=== PATIENT | male | born 1955 | race Caucasian/White ===

== ENCOUNTER 2017-09-15 20:03 | Inpatient (IN) | payer MEDICARE ==
[2017-09-15] MEDS ORDERED: Ondansetron ODT 4 MG TAB PO PRN (22:34)
[2017-09-16] MEDS: Acetaminophen 325 MG TAB PO PRN ×3 (00:32→20:52)
[2017-09-16] MEDS: Famotidine 20 MG TAB PO SCH ×2 (09:00→20:40)
[2017-09-16] MEDS: Gabapentin 100 MG CAP PO SCH ×3 (09:00→20:41)
[2017-09-16] MEDS ORDERED: VITAMIN B COMPLEX PO SCH (09:00)
[2017-09-16] MEDS: Aspirin 81 mg Enteric Coated Tablet PO SCH (09:00)
[2017-09-16] MEDS ORDERED: FOLIC ACID PO SCH (09:00)
[2017-09-16] MEDS: Cyanocobalamin (Vitamin B-12) 1,000 MCG TAB PO SCH (09:00)
[2017-09-16] MEDS ORDERED: ASCORBIC ACID PO SCH (09:00)
[2017-09-16] MEDS ORDERED: Milk Of Magnesia 30 ML UDCUP PO PRN (16:52)
[2017-09-16] MEDS: diphenhydrAMINE 25 MG CAP PO PRN (20:40)
--- NOTE | 2017-09-17 00:08 | HP ---
DATE OF ADMISSION: 09/15/2017 ADMITTING PHYSICIAN: Selam Mims M.D. PRIMARY CARE PHYSICIAN: No provider. REASON FOR ADMISSION: For Skilled Rehabilitation at [facility] for physical deconditioning secondary to vitamin B12 deficiency, rececurrent falls and alcohol dependence. HISTORY OF PRESENT ILLNESS: Mr. Llamas is a 62-year-old male with no significant past medical history who has not seen a physician in multiple years. The patient presented to the emergency room due to recurrent falls for the past 8 months, which has become progressively more severe. He recently fell on the day of admission and was unable to walk or get up for help. He eventually called one of his friends and he was brought to the emergency room. The patient was admitted to [facility] in [place] from 09/13/2017 to 09/15/2017. He was initially thought to have a transient ischemic attack versus cerebrovascular accident in the hospital. He underwent multiple evaluations. CT scan of the brain was negative. Echocardiogram was normal. CT angiogram of the head and neck were negative and multiple x-rays showed no acute fractures. It was decided that all of his symptoms were attributed to polyneuropathy likely secondary to his chronically significant alcohol use. The patient states he drinks about 12 beers a day and is not planning to quit. He also notes that he does smoke marijuana on a daily basis. He has multiple bruises with different healing stages. The patient in the hospital was supplemented with vitamin B12, thiamine, and folic acid. He was also started on gabapentin for his polyneuropathy. He expressed no interest in cessation of alcohol or marijuana use. His electrolytes were corrected during the hospital admission and patient was subsequently transferred to us in [facility] for physical therapy and assistance with his wound care. The patient does have multiple abrasions and wounds and scrapes all over his body, more significant on his extremities. He does have a draining wound to his left elbow, which is a mild stage II ulcer due to the drainage. The patient upon evaluation today, he complains of loose tooth with no pain, he says almost every food he eats gets stuck in the teeth and he wants to see a dentist since he is in the hospital. The patient states he is not willing to quit drinking, but he is okay with having his beers with meals in the hospital. He denies any chest pain, seizures, shakes, tremors, shortness of breath, palpitations, dizziness. He complains of gait instability. He states he has been having regular bowel movement. He denies any fever. He denies any hallucinations, delusions or confusion. PAST MEDICAL HISTORY: No medical history other than alcohol dependence and recurrent fall. PAST SURGICAL HISTORY: The patient notes he has had multiple surgeries to his knees, right shoulder and the left shoulder. FAMILY HISTORY: Nonapplicable. ALLERGIES: SULFA. MEDICATIONS: Vitamin B12 of 1000 mcg daily, Pepcid 20 mg p.o. daily, thiamine 1000 daily, gabapentin 100 t.i.d., Tylenol 650 q.6 hours p.r.n., aspirin 81 mg daily, MVI 1 tab p.o. daily. SOCIAL HISTORY: The patient chews tobacco. He states he drinks about 12 beers daily. He uses marijuana mostly daily, lives by himself in his home. REVIEW OF SYSTEMS: General: The patient denies any fever or chills. Complains of weakness. The patient denies any nausea, vomiting. HEENT: No visual changes, hearing loss. No dysphagia. Although complains of loose tooth. Chest: No chest pain, shortness of breath, palpitations or dizziness. Abdomen: Denies abdominal pain, constipation, or nausea. Genitourinary: Denies dysuria or hematuria. Skin: Multiple abrasions and bruising all over skin, especially extremities. Musculoskeletal: Complains of soreness, complains of gait instability. Neurologic: Denies memory loss, hallucinations , or delusions. PHYSICAL EXAMINATION: VITAL SIGNS: Temperature 97.3, pulse 75, respirations 16, O2 sat 99% on room air, blood pressure 121/71. GENERAL APPEARANCE: Alert, awake, oriented x3. Healthy appearing male, pleasant, sitting in a chair, no apparent distress. HEENT: Normocephalic, atraumatic. PERRL. Nonicteric sclerae. Oral mucous membranes are moist. Poor dentition. NECK: Supple, no JVD. CHEST: Clear to auscultation bilaterally. CARDIAC: S1, S2, no murmurs, rubs or gallops. No JVD, no carotid bruit. ABDOMEN: Positive bowel sounds, soft, nontender, and nondistended. EXTREMITIES: No focal deficits other than generalized weakness to the upper and lower extremities. SKIN: Multiple abrasions scattered all over the upper and lower extremities. His right elbow with a stage II ulcer, abrasions to his thorax also. PSYCH: Normal mood and affect. ASSESSMENT: 1. Physical deconditioning. 2. Alcohol dependence. 3. Vitamin B12 deficiency. 4. Polyneuropathy. 5. History of multiple falls. 6. Marijuana abuse. 7. Loose tooth/poor dentition. PLAN: The patient is being admitted to [facility] swing bed for rehabilitation and gait strengthening and wound care. We will consult physical therapy for strengthening in order to gain modified independence with his gait and occupational therapy to help with activities of daily living prior to returning to his home. We will change wound dressings daily. We will resume medications started in the hospital. We will supplement his diet with some Ensure Enlive. We will monitor blood pressure closely. We will give him beer with his meal 3 times a day. We will place patient on p.r.n. stool softener. We will monitor for any hemodynamic instability. We will place the patient on G.I prophylaxis and lovenox for deep venous thrombosis prophylaxis. Extended length of stay 2-3 weeks. DISPOSITION: Home. CODE STATUS: FULL CODE. MTDD
[2017-09-17] MEDS: Acetaminophen 325 MG TAB PO PRN ×2 (02:30→13:34)
[2017-09-17] MEDS: Gabapentin 100 MG CAP PO SCH ×4 (09:00→21:22)
[2017-09-17] MEDS: Famotidine 20 MG TAB PO SCH ×2 (09:00→21:22)
[2017-09-17] MEDS: Aspirin 81 mg Enteric Coated Tablet PO SCH ×2 (09:00→13:34)
[2017-09-17] MEDS: Enoxaparin Sodium 40 MG/0.4 ML SYRINGE SC SCH ×2 (09:00→13:35)
[2017-09-17] MEDS: Cyanocobalamin (Vitamin B-12) 1,000 MCG TAB PO SCH ×2 (09:00→13:34)
[2017-09-17] MEDS ORDERED: Cyclobenzaprine 10 MG TAB PO SCH (21:00)
[2017-09-17] MEDS: BEER 1 CAN PO PRN (21:30)
[2017-09-18] MEDS: BEER 1 CAN PO PRN (00:24)
[2017-09-18] MEDS: Acetaminophen 325 MG TAB PO PRN ×2 (02:01→18:10)
[2017-09-18] MEDS: Cyanocobalamin (Vitamin B-12) 1,000 MCG TAB PO SCH (08:45)
[2017-09-18] MEDS: Enoxaparin Sodium 40 MG/0.4 ML SYRINGE SC SCH (08:45)
[2017-09-18] MEDS: Gabapentin 100 MG CAP PO SCH ×3 (08:45→20:15)
[2017-09-18] MEDS: Aspirin 81 mg Enteric Coated Tablet PO SCH (08:45)
[2017-09-18] MEDS: Famotidine 20 MG TAB PO SCH ×2 (08:45→20:15)
[2017-09-18] MEDS: diphenhydrAMINE 25 MG CAP PO PRN (18:13)
[2017-09-19] MEDS: diphenhydrAMINE 25 MG CAP PO PRN ×2 (00:28→13:10)
[2017-09-19] MEDS: Acetaminophen 325 MG TAB PO PRN ×3 (00:28→15:47)
[2017-09-19] MEDS: Enoxaparin Sodium 40 MG/0.4 ML SYRINGE SC SCH (08:46)
[2017-09-19] MEDS: Famotidine 20 MG TAB PO SCH ×2 (08:47→20:30)
[2017-09-19] MEDS: Gabapentin 100 MG CAP PO SCH ×3 (08:47→20:30)
[2017-09-19] MEDS: Cyanocobalamin (Vitamin B-12) 1,000 MCG TAB PO SCH (08:47)
[2017-09-19] MEDS: Aspirin 81 mg Enteric Coated Tablet PO SCH (08:47)
[2017-09-19] MEDS ORDERED: Folic Acid/Vit B Comp W-C PO SCH (17:00)
[2017-09-19] MEDS: BEER 1 CAN PO PRN ×3 (18:10→23:33)
[2017-09-20] MEDS: Acetaminophen 325 MG TAB PO PRN ×3 (00:34→20:22)
[2017-09-20] MEDS: Folic Acid/Vit B Comp W-C PO SCH (08:22)
[2017-09-20] MEDS: Aspirin 81 mg Enteric Coated Tablet PO SCH (08:22)
[2017-09-20] MEDS: Famotidine 20 MG TAB PO SCH ×2 (08:22→20:22)
[2017-09-20] MEDS: Cyanocobalamin (Vitamin B-12) 1,000 MCG TAB PO SCH (08:22)
[2017-09-20] MEDS: Gabapentin 100 MG CAP PO SCH ×3 (08:22→20:22)
[2017-09-20] MEDS: Enoxaparin Sodium 40 MG/0.4 ML SYRINGE SC SCH (08:23)
[2017-09-20] MEDS: diphenhydrAMINE 25 MG CAP PO PRN ×2 (14:07→23:17)
[2017-09-20] MEDS: BEER 1 CAN PO PRN ×3 (15:36→23:46)
[2017-09-20] MEDS ORDERED: Mag-Al 1200 mg/1200 mg/30 ML UDCUP PO PRN (18:13)
[2017-09-20] MEDS: Mag-Al Plus 1200 MG/1200 MG/120 MG/30 ML UDCUP PO PRN (19:06)
[2017-09-21] MEDS: Gabapentin 100 MG CAP PO SCH ×3 (08:15→20:28)
[2017-09-21] MEDS: Folic Acid/Vit B Comp W-C PO SCH (08:15)
[2017-09-21] MEDS: Aspirin 81 mg Enteric Coated Tablet PO SCH (08:15)
[2017-09-21] MEDS: Famotidine 20 MG TAB PO SCH ×2 (08:16→20:28)
[2017-09-21] MEDS: Cyanocobalamin (Vitamin B-12) 1,000 MCG TAB PO SCH (08:16)
[2017-09-21] MEDS: Enoxaparin Sodium 40 MG/0.4 ML SYRINGE SC SCH (08:16)
[2017-09-21] MEDS: diphenhydrAMINE 25 MG CAP PO PRN ×2 (11:05→20:33)
[2017-09-21] MEDS: Acetaminophen 325 MG TAB PO PRN ×2 (14:09→20:33)
[2017-09-21] MEDS: BEER 1 CAN PO PRN ×3 (18:17→23:50)
[2017-09-21] MEDS: Emollient 15 oz bottle 450 ML, Triamcinolone Acetonide 200 MG TOP SCH (21:06)
[2017-09-22] MEDS: Gabapentin 100 MG CAP PO SCH ×3 (10:22→20:02)
[2017-09-22] MEDS: Folic Acid/Vit B Comp W-C PO SCH (10:22)
[2017-09-22] MEDS: Emollient 15 oz bottle 450 ML, Triamcinolone Acetonide 200 MG TOP SCH ×2 (10:22→20:02)
[2017-09-22] MEDS: Cyanocobalamin (Vitamin B-12) 1,000 MCG TAB PO SCH (10:22)
[2017-09-22] MEDS: Famotidine 20 MG TAB PO SCH ×2 (10:22→20:02)
[2017-09-22] MEDS: Enoxaparin Sodium 40 MG/0.4 ML SYRINGE SC SCH (10:22)
[2017-09-22] MEDS: Aspirin 81 mg Enteric Coated Tablet PO SCH (10:22)
[2017-09-22] MEDS: Acetaminophen 325 MG TAB PO PRN (16:02)
[2017-09-22] MEDS: BEER 1 CAN PO PRN ×3 (18:53→23:44)
[2017-09-23] MEDS: Gabapentin 100 MG CAP PO SCH ×3 (10:05→20:01)
[2017-09-23] MEDS: Folic Acid/Vit B Comp W-C PO SCH (10:05)
[2017-09-23] MEDS: Cyanocobalamin (Vitamin B-12) 1,000 MCG TAB PO SCH (10:05)
[2017-09-23] MEDS: Famotidine 20 MG TAB PO SCH ×2 (10:05→20:02)
[2017-09-23] MEDS: Aspirin 81 mg Enteric Coated Tablet PO SCH (10:05)
[2017-09-23] MEDS: Enoxaparin Sodium 40 MG/0.4 ML SYRINGE SC SCH (10:05)
[2017-09-23] MEDS: Emollient 15 oz bottle 450 ML, Triamcinolone Acetonide 200 MG TOP SCH ×2 (10:06→20:05)
[2017-09-23] MEDS: Acetaminophen 325 MG TAB PO PRN ×2 (12:22→20:01)
[2017-09-23] MEDS: BEER 1 CAN PO PRN ×3 (20:00→23:48)
[2017-09-23] MEDS: diphenhydrAMINE 25 MG CAP PO PRN (20:02)
[2017-09-24] MEDS: Cyanocobalamin (Vitamin B-12) 1,000 MCG TAB PO SCH (09:19)
[2017-09-24] MEDS: Famotidine 20 MG TAB PO SCH ×2 (09:19→21:36)
[2017-09-24] MEDS: Aspirin 81 mg Enteric Coated Tablet PO SCH (09:19)
[2017-09-24] MEDS: Enoxaparin Sodium 40 MG/0.4 ML SYRINGE SC SCH (09:19)
[2017-09-24] MEDS: Folic Acid/Vit B Comp W-C PO SCH (09:19)
[2017-09-24] MEDS: Gabapentin 100 MG CAP PO SCH ×3 (09:19→21:36)
[2017-09-24] MEDS: Emollient 15 oz bottle 450 ML, Triamcinolone Acetonide 200 MG TOP SCH ×2 (09:20→21:37)
[2017-09-24] MEDS: diphenhydrAMINE 25 MG CAP PO PRN ×2 (11:22→23:45)
[2017-09-24] MEDS: Acetaminophen 325 MG TAB PO PRN ×2 (11:24→23:45)
[2017-09-24] MEDS: BEER 1 CAN PO PRN ×3 (18:21→23:45)
[2017-09-25] MEDS: Emollient 15 oz bottle 450 ML, Triamcinolone Acetonide 200 MG TOP SCH ×2 (09:59→20:12)
[2017-09-25] MEDS: Enoxaparin Sodium 40 MG/0.4 ML SYRINGE SC SCH (09:59)
[2017-09-25] MEDS: Aspirin 81 mg Enteric Coated Tablet PO SCH (09:59)
[2017-09-25] MEDS: Gabapentin 100 MG CAP PO SCH ×3 (09:59→20:11)
[2017-09-25] MEDS: Cyanocobalamin (Vitamin B-12) 1,000 MCG TAB PO SCH (09:59)
[2017-09-25] MEDS: Folic Acid/Vit B Comp W-C PO SCH (09:59)
[2017-09-25] MEDS: Famotidine 20 MG TAB PO SCH ×2 (09:59→20:11)
[2017-09-25] MEDS: diphenhydrAMINE 25 MG CAP PO PRN (11:35)
[2017-09-25] MEDS: Acetaminophen 325 MG TAB PO PRN ×2 (11:35→21:29)
[2017-09-25] MEDS: BEER 1 CAN PO PRN ×3 (18:20→23:01)
[2017-09-26] MEDS: diphenhydrAMINE 25 MG CAP PO PRN ×2 (00:22→12:58)
[2017-09-26] MEDS: Gabapentin 100 MG CAP PO SCH ×3 (11:38→20:41)
[2017-09-26] MEDS: Enoxaparin Sodium 40 MG/0.4 ML SYRINGE SC SCH (11:38)
[2017-09-26] MEDS: Folic Acid/Vit B Comp W-C PO SCH (11:38)
[2017-09-26] MEDS: Aspirin 81 mg Enteric Coated Tablet PO SCH (11:38)
[2017-09-26] MEDS: Cyanocobalamin (Vitamin B-12) 1,000 MCG TAB PO SCH (11:39)
[2017-09-26] MEDS: Emollient 15 oz bottle 450 ML, Triamcinolone Acetonide 200 MG TOP SCH ×2 (11:39→20:41)
[2017-09-26] MEDS: Famotidine 20 MG TAB PO SCH ×2 (11:39→20:41)
[2017-09-26] MEDS: Acetaminophen 325 MG TAB PO PRN ×2 (11:41→22:04)
[2017-09-26] MEDS ORDERED: Sodium Chloride Irrig Solution 250 ML BOT ONE (13:14)
[2017-09-26] MEDS: BEER 1 CAN PO PRN ×3 (19:14→23:54)
[2017-09-26] MEDS: Cephalexin 500 MG CAP PO SCH (20:41)
[2017-09-27] MEDS: Acetaminophen 325 MG TAB PO PRN ×3 (11:02→23:49)
[2017-09-27] MEDS: diphenhydrAMINE 25 MG CAP PO PRN ×2 (11:03→23:49)
[2017-09-27] MEDS: Folic Acid/Vit B Comp W-C PO SCH (11:03)
[2017-09-27] MEDS: Enoxaparin Sodium 40 MG/0.4 ML SYRINGE SC SCH (11:03)
[2017-09-27] MEDS: Famotidine 20 MG TAB PO SCH ×2 (11:03→21:52)
[2017-09-27] MEDS: Gabapentin 100 MG CAP PO SCH ×3 (11:03→21:52)
[2017-09-27] MEDS: Cyanocobalamin (Vitamin B-12) 1,000 MCG TAB PO SCH (11:04)
[2017-09-27] MEDS: Emollient 15 oz bottle 450 ML, Triamcinolone Acetonide 200 MG TOP SCH ×2 (11:04→21:53)
[2017-09-27] MEDS: Aspirin 81 mg Enteric Coated Tablet PO SCH (11:04)
[2017-09-27] MEDS: Cephalexin 500 MG CAP PO SCH ×4 (11:04→21:52)
[2017-09-27] MEDS: BEER 1 CAN PO PRN ×3 (19:04→23:50)
[2017-09-28] MEDS: Cyanocobalamin (Vitamin B-12) 1,000 MCG TAB PO SCH (08:36)
[2017-09-28] MEDS: Cephalexin 500 MG CAP PO SCH ×4 (08:36→21:32)
[2017-09-28] MEDS: Aspirin 81 mg Enteric Coated Tablet PO SCH (08:36)
[2017-09-28] MEDS: Enoxaparin Sodium 40 MG/0.4 ML SYRINGE SC SCH (08:36)
[2017-09-28] MEDS: Gabapentin 100 MG CAP PO SCH ×3 (08:36→21:32)
[2017-09-28] MEDS: Famotidine 20 MG TAB PO SCH ×2 (08:37→21:32)
[2017-09-28] MEDS: Emollient 15 oz bottle 450 ML, Triamcinolone Acetonide 200 MG TOP SCH ×2 (08:37→21:32)
[2017-09-28] MEDS: Folic Acid/Vit B Comp W-C PO SCH (08:37)
[2017-09-28] MEDS: diphenhydrAMINE 25 MG CAP PO PRN (11:35)
[2017-09-28] MEDS: Acetaminophen 325 MG TAB PO PRN ×2 (11:35→15:30)
[2017-09-28] MEDS: BEER 1 CAN PO PRN ×3 (18:20→23:42)
[2017-09-29] MEDS: diphenhydrAMINE 25 MG CAP PO PRN ×3 (00:30→23:47)
[2017-09-29] MEDS: Acetaminophen 325 MG TAB PO PRN ×5 (00:30→23:47)
[2017-09-29] MEDS: Cephalexin 500 MG CAP PO SCH ×4 (08:23→20:55)
[2017-09-29] MEDS: Cyanocobalamin (Vitamin B-12) 1,000 MCG TAB PO SCH (08:23)
[2017-09-29] MEDS: Gabapentin 100 MG CAP PO SCH ×3 (08:23→20:55)
[2017-09-29] MEDS: Famotidine 20 MG TAB PO SCH ×2 (08:23→20:55)
[2017-09-29] MEDS: Folic Acid/Vit B Comp W-C PO SCH (08:23)
[2017-09-29] MEDS: Aspirin 81 mg Enteric Coated Tablet PO SCH (08:23)
[2017-09-29] MEDS: Emollient 15 oz bottle 450 ML, Triamcinolone Acetonide 200 MG TOP SCH ×2 (08:24→20:55)
[2017-09-29] MEDS: Enoxaparin Sodium 40 MG/0.4 ML SYRINGE SC SCH (08:24)
[2017-09-29] MEDS: BEER 1 CAN PO PRN ×3 (19:06→23:46)
[2017-09-30] MEDS: Cyanocobalamin (Vitamin B-12) 1,000 MCG TAB PO SCH (09:33)
[2017-09-30] MEDS: Folic Acid/Vit B Comp W-C PO SCH (09:33)
[2017-09-30] MEDS: Gabapentin 100 MG CAP PO SCH ×3 (09:33→20:52)
[2017-09-30] MEDS: Famotidine 20 MG TAB PO SCH ×2 (09:33→20:52)
[2017-09-30] MEDS: Cephalexin 500 MG CAP PO SCH ×3 (09:33→16:53)
[2017-09-30] MEDS: Aspirin 81 mg Enteric Coated Tablet PO SCH (09:33)
[2017-09-30] MEDS: Enoxaparin Sodium 40 MG/0.4 ML SYRINGE SC SCH (09:34)
[2017-09-30] MEDS: Emollient 15 oz bottle 450 ML, Triamcinolone Acetonide 200 MG TOP SCH ×2 (09:34→20:53)
[2017-09-30] MEDS: Acetaminophen 325 MG TAB PO PRN ×4 (11:04→23:26)
[2017-09-30] MEDS: diphenhydrAMINE 25 MG CAP PO PRN ×2 (11:04→23:26)
[2017-09-30] MEDS: BEER 1 CAN PO PRN ×3 (19:15→23:27)
[2017-10-01] MEDS: Folic Acid/Vit B Comp W-C PO SCH (09:41)
[2017-10-01] MEDS: Enoxaparin Sodium 40 MG/0.4 ML SYRINGE SC SCH (09:41)
[2017-10-01] MEDS: Acetaminophen 325 MG TAB PO PRN ×3 (09:41→23:50)
[2017-10-01] MEDS: diphenhydrAMINE 25 MG CAP PO PRN ×2 (09:42→16:25)
[2017-10-01] MEDS: Gabapentin 100 MG CAP PO SCH ×3 (09:42→20:40)
[2017-10-01] MEDS: Famotidine 20 MG TAB PO SCH ×2 (09:42→20:40)
[2017-10-01] MEDS: Cyanocobalamin (Vitamin B-12) 1,000 MCG TAB PO SCH (09:42)
[2017-10-01] MEDS: Emollient 15 oz bottle 450 ML, Triamcinolone Acetonide 200 MG TOP SCH ×2 (09:42→20:40)
[2017-10-01] MEDS: Aspirin 81 mg Enteric Coated Tablet PO SCH (09:42)
[2017-10-01] MEDS: BEER 1 CAN PO PRN ×3 (19:14→23:50)
[2017-10-02] MEDS: diphenhydrAMINE 25 MG CAP PO PRN ×3 (00:28→23:53)
[2017-10-02] MEDS: Folic Acid/Vit B Comp W-C PO SCH (10:26)
[2017-10-02] MEDS: Famotidine 20 MG TAB PO SCH ×2 (10:26→20:22)
[2017-10-02] MEDS: Enoxaparin Sodium 40 MG/0.4 ML SYRINGE SC SCH (10:26)
[2017-10-02] MEDS: Acetaminophen 325 MG TAB PO PRN ×4 (10:27→23:53)
[2017-10-02] MEDS: Cyanocobalamin (Vitamin B-12) 1,000 MCG TAB PO SCH (10:27)
[2017-10-02] MEDS: Gabapentin 100 MG CAP PO SCH ×3 (10:27→20:22)
[2017-10-02] MEDS: Aspirin 81 mg Enteric Coated Tablet PO SCH (10:28)
[2017-10-02] MEDS: Emollient 15 oz bottle 450 ML, Triamcinolone Acetonide 200 MG TOP SCH ×2 (10:28→20:22)
[2017-10-02] MEDS: BEER 1 CAN PO PRN ×3 (19:13→23:52)
[2017-10-03] MEDS: Enoxaparin Sodium 40 MG/0.4 ML SYRINGE SC SCH (10:14)
[2017-10-03] MEDS: Folic Acid/Vit B Comp W-C PO SCH (10:15)
[2017-10-03] MEDS: Gabapentin 100 MG CAP PO SCH ×3 (10:15→21:48)
[2017-10-03] MEDS: Emollient 15 oz bottle 450 ML, Triamcinolone Acetonide 200 MG TOP SCH ×2 (10:15→20:05)
[2017-10-03] MEDS: Aspirin 81 mg Enteric Coated Tablet PO SCH (10:15)
[2017-10-03] MEDS: Famotidine 20 MG TAB PO SCH ×2 (10:15→21:48)
[2017-10-03] MEDS: diphenhydrAMINE 25 MG CAP PO PRN ×2 (10:15→17:55)
[2017-10-03] MEDS: Cyanocobalamin (Vitamin B-12) 1,000 MCG TAB PO SCH (10:15)
[2017-10-03] MEDS: Acetaminophen 325 MG TAB PO PRN ×4 (10:15→23:50)
[2017-10-03] MEDS: BEER 1 CAN PO PRN ×3 (20:06→23:48)
[2017-10-04] MEDS: diphenhydrAMINE 25 MG CAP PO PRN ×3 (07:49→23:39)
[2017-10-04] MEDS: Acetaminophen 325 MG TAB PO PRN ×4 (07:49→23:38)
[2017-10-04] MEDS: Cyanocobalamin (Vitamin B-12) 1,000 MCG TAB PO SCH (07:57)
[2017-10-04] MEDS: Enoxaparin Sodium 40 MG/0.4 ML SYRINGE SC SCH (07:58)
[2017-10-04] MEDS: Gabapentin 100 MG CAP PO SCH ×3 (07:58→20:02)
[2017-10-04] MEDS: Aspirin 81 mg Enteric Coated Tablet PO SCH (07:58)
[2017-10-04] MEDS: Famotidine 20 MG TAB PO SCH ×2 (07:58→20:02)
[2017-10-04] MEDS: Emollient 15 oz bottle 450 ML, Triamcinolone Acetonide 200 MG TOP SCH ×2 (07:58→20:04)
[2017-10-04] MEDS: Folic Acid/Vit B Comp W-C PO SCH (07:58)
[2017-10-04] MEDS: BEER 1 CAN PO PRN ×3 (19:24→23:38)
[2017-10-05] MEDS: diphenhydrAMINE 25 MG CAP PO PRN ×3 (08:23→23:40)
[2017-10-05] MEDS: Acetaminophen 325 MG TAB PO PRN ×3 (08:23→23:40)
[2017-10-05] MEDS: Folic Acid/Vit B Comp W-C PO SCH (08:23)
[2017-10-05] MEDS: Famotidine 20 MG TAB PO SCH ×2 (08:24→21:06)
[2017-10-05] MEDS: Cyanocobalamin (Vitamin B-12) 1,000 MCG TAB PO SCH (08:24)
[2017-10-05] MEDS: Gabapentin 100 MG CAP PO SCH ×3 (08:24→21:06)
[2017-10-05] MEDS: Aspirin 81 mg Enteric Coated Tablet PO SCH (08:24)
[2017-10-05] MEDS: Enoxaparin Sodium 40 MG/0.4 ML SYRINGE SC SCH (08:24)
[2017-10-05] MEDS: Emollient 15 oz bottle 450 ML, Triamcinolone Acetonide 200 MG TOP SCH ×2 (08:25→21:06)
[2017-10-05] MEDS: BEER 1 CAN PO PRN ×3 (18:30→23:40)
[2017-10-06] MEDS: Aspirin 81 mg Enteric Coated Tablet PO SCH (10:07)
[2017-10-06] MEDS: Famotidine 20 MG TAB PO SCH ×2 (10:08→21:36)
[2017-10-06] MEDS: Enoxaparin Sodium 40 MG/0.4 ML SYRINGE SC SCH (10:08)
[2017-10-06] MEDS: Cyanocobalamin (Vitamin B-12) 1,000 MCG TAB PO SCH (10:08)
[2017-10-06] MEDS: Folic Acid/Vit B Comp W-C PO SCH (10:09)
[2017-10-06] MEDS: Gabapentin 100 MG CAP PO SCH ×3 (10:09→21:36)
[2017-10-06] MEDS: Acetaminophen 325 MG TAB PO PRN ×4 (10:10→23:44)
[2017-10-06] MEDS: diphenhydrAMINE 25 MG CAP PO PRN ×3 (10:10→23:44)
[2017-10-06] MEDS: Emollient 15 oz bottle 450 ML, Triamcinolone Acetonide 200 MG TOP SCH ×2 (10:12→21:36)
[2017-10-06] MEDS: BEER 1 CAN PO PRN ×3 (19:25→23:44)
[2017-10-07] MEDS: Enoxaparin Sodium 40 MG/0.4 ML SYRINGE SC SCH (10:11)
[2017-10-07] MEDS: Gabapentin 100 MG CAP PO SCH ×3 (10:12→19:58)
[2017-10-07] MEDS: Emollient 15 oz bottle 450 ML, Triamcinolone Acetonide 200 MG TOP SCH ×2 (10:12→19:55)
[2017-10-07] MEDS: Cyanocobalamin (Vitamin B-12) 1,000 MCG TAB PO SCH (10:12)
[2017-10-07] MEDS: Aspirin 81 mg Enteric Coated Tablet PO SCH (10:12)
[2017-10-07] MEDS: Famotidine 20 MG TAB PO SCH ×2 (10:12→19:58)
[2017-10-07] MEDS: Folic Acid/Vit B Comp W-C PO SCH (10:12)
[2017-10-07] MEDS: diphenhydrAMINE 25 MG CAP PO PRN ×2 (10:51→16:57)
[2017-10-07] MEDS: Acetaminophen 325 MG TAB PO PRN ×4 (10:52→23:59)
[2017-10-07] MEDS: BEER 1 CAN PO PRN ×3 (19:55→23:59)
[2017-10-08] MEDS: Folic Acid/Vit B Comp W-C PO SCH (08:17)
[2017-10-08] MEDS: Cyanocobalamin (Vitamin B-12) 1,000 MCG TAB PO SCH (08:17)
[2017-10-08] MEDS: Gabapentin 100 MG CAP PO SCH ×3 (08:17→21:11)
[2017-10-08] MEDS: Aspirin 81 mg Enteric Coated Tablet PO SCH (08:17)
[2017-10-08] MEDS: Enoxaparin Sodium 40 MG/0.4 ML SYRINGE SC SCH (08:17)
[2017-10-08] MEDS: Famotidine 20 MG TAB PO SCH ×2 (08:17→21:11)
[2017-10-08] MEDS: Emollient 15 oz bottle 450 ML, Triamcinolone Acetonide 200 MG TOP SCH ×2 (08:18→21:11)
[2017-10-08] MEDS: Acetaminophen 325 MG TAB PO PRN ×4 (08:21→23:52)
[2017-10-08] MEDS: diphenhydrAMINE 25 MG CAP PO PRN ×4 (08:21→23:52)
[2017-10-08] MEDS: BEER 1 CAN PO PRN ×3 (19:43→23:52)
[2017-10-09] MEDS: Aspirin 81 mg Enteric Coated Tablet PO SCH (10:24)
[2017-10-09] MEDS: Enoxaparin Sodium 40 MG/0.4 ML SYRINGE SC SCH (10:24)
[2017-10-09] MEDS: Emollient 15 oz bottle 450 ML, Triamcinolone Acetonide 200 MG TOP SCH ×2 (10:24→20:16)
[2017-10-09] MEDS: Gabapentin 100 MG CAP PO SCH ×3 (10:24→20:17)
[2017-10-09] MEDS: Famotidine 20 MG TAB PO SCH ×2 (10:24→20:17)
[2017-10-09] MEDS: Cyanocobalamin (Vitamin B-12) 1,000 MCG TAB PO SCH (10:24)
[2017-10-09] MEDS: Folic Acid/Vit B Comp W-C PO SCH (10:24)
[2017-10-09] MEDS: Acetaminophen 325 MG TAB PO PRN ×3 (10:24→23:52)
[2017-10-09] MEDS: diphenhydrAMINE 25 MG CAP PO PRN ×3 (10:24→23:52)
[2017-10-09] MEDS: BEER 1 CAN PO PRN ×3 (19:32→23:52)
[2017-10-10] MEDS: Enoxaparin Sodium 40 MG/0.4 ML SYRINGE SC SCH (11:18)
[2017-10-10] MEDS: Folic Acid/Vit B Comp W-C PO SCH (11:19)
[2017-10-10] MEDS: Famotidine 20 MG TAB PO SCH ×2 (11:20→21:20)
[2017-10-10] MEDS: Aspirin 81 mg Enteric Coated Tablet PO SCH (11:21)
[2017-10-10] MEDS: Cyanocobalamin (Vitamin B-12) 1,000 MCG TAB PO SCH (11:21)
[2017-10-10] MEDS: Gabapentin 100 MG CAP PO SCH ×3 (11:21→21:20)
[2017-10-10] MEDS: Emollient 15 oz bottle 450 ML, Triamcinolone Acetonide 200 MG TOP SCH ×2 (11:22→21:20)
[2017-10-10] MEDS: diphenhydrAMINE 25 MG CAP PO PRN ×3 (11:44→23:58)
[2017-10-10] MEDS: Acetaminophen 325 MG TAB PO PRN ×3 (11:44→23:58)
[2017-10-10] MEDS: BEER 1 CAN PO PRN ×3 (19:40→23:58)
[2017-10-11] MEDS: Cyanocobalamin (Vitamin B-12) 1,000 MCG TAB PO SCH (10:24)
[2017-10-11] MEDS: Famotidine 20 MG TAB PO SCH ×2 (10:24→21:42)
[2017-10-11] MEDS: Gabapentin 100 MG CAP PO SCH ×3 (10:24→21:42)
[2017-10-11] MEDS: diphenhydrAMINE 25 MG CAP PO PRN ×3 (10:24→23:52)
[2017-10-11] MEDS: Folic Acid/Vit B Comp W-C PO SCH (10:24)
[2017-10-11] MEDS: Acetaminophen 325 MG TAB PO PRN ×3 (10:24→23:52)
[2017-10-11] MEDS: Aspirin 81 mg Enteric Coated Tablet PO SCH (10:24)
[2017-10-11] MEDS: Emollient 15 oz bottle 450 ML, Triamcinolone Acetonide 200 MG TOP SCH ×2 (10:24→21:45)
[2017-10-11] MEDS: Enoxaparin Sodium 40 MG/0.4 ML SYRINGE SC SCH (10:25)
[2017-10-11] MEDS: BEER 1 CAN PO PRN ×3 (19:23→23:52)
[2017-10-12] MEDS: Famotidine 20 MG TAB PO SCH ×2 (09:57→20:21)
[2017-10-12] MEDS: Folic Acid/Vit B Comp W-C PO SCH (09:57)
[2017-10-12] MEDS: Cyanocobalamin (Vitamin B-12) 1,000 MCG TAB PO SCH (09:57)
[2017-10-12] MEDS: diphenhydrAMINE 25 MG CAP PO PRN ×3 (09:57→23:48)
[2017-10-12] MEDS: Acetaminophen 325 MG TAB PO PRN ×4 (09:57→23:48)
[2017-10-12] MEDS: Gabapentin 100 MG CAP PO SCH ×3 (09:58→20:21)
[2017-10-12] MEDS: Enoxaparin Sodium 40 MG/0.4 ML SYRINGE SC SCH (09:58)
[2017-10-12] MEDS: Aspirin 81 mg Enteric Coated Tablet PO SCH (09:58)
[2017-10-12] MEDS: Emollient 15 oz bottle 450 ML, Triamcinolone Acetonide 200 MG TOP SCH ×2 (09:59→20:21)
[2017-10-12] MEDS ORDERED: Gabapentin 100 MG CAP PO SCH ×2 (12:22→13:15)
[2017-10-12] MEDS: BEER 1 CAN PO PRN ×3 (19:03→23:48)
[2017-10-12] MEDS: Mag-Al Plus 1200 MG/1200 MG/120 MG/30 ML UDCUP PO PRN (21:32)
[2017-10-13] MEDS: Enoxaparin Sodium 40 MG/0.4 ML SYRINGE SC SCH (10:45)
[2017-10-13] MEDS: Gabapentin 100 MG CAP PO SCH ×3 (10:46→20:47)
[2017-10-13] MEDS: Aspirin 81 mg Enteric Coated Tablet PO SCH (10:46)
[2017-10-13] MEDS: Famotidine 20 MG TAB PO SCH ×2 (10:46→20:47)
[2017-10-13] MEDS: Folic Acid/Vit B Comp W-C PO SCH (10:47)
[2017-10-13] MEDS: Cyanocobalamin (Vitamin B-12) 1,000 MCG TAB PO SCH (10:47)
[2017-10-13] MEDS: Emollient 15 oz bottle 450 ML, Triamcinolone Acetonide 200 MG TOP SCH ×2 (10:47→20:47)
[2017-10-13] MEDS: Acetaminophen 325 MG TAB PO PRN ×4 (10:49→23:41)
[2017-10-13] MEDS: diphenhydrAMINE 25 MG CAP PO PRN ×3 (10:49→23:41)
[2017-10-13] MEDS: BEER 1 CAN PO PRN ×3 (19:10→23:41)
[2017-10-13 20:41] VITALS: BMI 22.4
[2017-10-14] MEDS: Aspirin 81 mg Enteric Coated Tablet PO SCH (10:38)
[2017-10-14] MEDS: Gabapentin 100 MG CAP PO SCH ×3 (10:38→20:58)
[2017-10-14] MEDS: Enoxaparin Sodium 40 MG/0.4 ML SYRINGE SC SCH (10:38)
[2017-10-14] MEDS: diphenhydrAMINE 25 MG CAP PO PRN ×2 (10:38→16:37)
[2017-10-14] MEDS: Acetaminophen 325 MG TAB PO PRN ×3 (10:38→19:04)
[2017-10-14] MEDS: Folic Acid/Vit B Comp W-C PO SCH (10:38)
[2017-10-14] MEDS: Emollient 15 oz bottle 450 ML, Triamcinolone Acetonide 200 MG TOP SCH ×2 (10:39→20:58)
[2017-10-14] MEDS: Cyanocobalamin (Vitamin B-12) 1,000 MCG TAB PO SCH (10:39)
[2017-10-14] MEDS: Famotidine 20 MG TAB PO SCH ×2 (10:39→20:58)
[2017-10-14] MEDS: BEER 1 CAN PO PRN ×2 (20:15→22:05)
[2017-10-15] MEDS: diphenhydrAMINE 25 MG CAP PO PRN ×4 (00:05→23:34)
[2017-10-15] MEDS: Acetaminophen 325 MG TAB PO PRN ×4 (00:05→23:34)
[2017-10-15] MEDS: BEER 1 CAN PO PRN ×4 (00:05→23:34)
[2017-10-15] MEDS: Gabapentin 100 MG CAP PO SCH ×3 (09:12→20:14)
[2017-10-15] MEDS: Emollient 15 oz bottle 450 ML, Triamcinolone Acetonide 200 MG TOP SCH ×2 (09:12→20:14)
[2017-10-15] MEDS: Enoxaparin Sodium 40 MG/0.4 ML SYRINGE SC SCH (09:12)
[2017-10-15] MEDS: Aspirin 81 mg Enteric Coated Tablet PO SCH (09:12)
[2017-10-15] MEDS: Famotidine 20 MG TAB PO SCH ×2 (09:13→20:14)
[2017-10-15] MEDS: Cyanocobalamin (Vitamin B-12) 1,000 MCG TAB PO SCH (09:13)
[2017-10-15] MEDS: Folic Acid/Vit B Comp W-C PO SCH (09:13)
[2017-10-16] MEDS: Cyanocobalamin (Vitamin B-12) 1,000 MCG TAB PO SCH (10:26)
[2017-10-16] MEDS: Gabapentin 100 MG CAP PO SCH ×3 (10:26→20:42)
[2017-10-16] MEDS: Folic Acid/Vit B Comp W-C PO SCH (10:26)
[2017-10-16] MEDS: Aspirin 81 mg Enteric Coated Tablet PO SCH (10:26)
[2017-10-16] MEDS: Famotidine 20 MG TAB PO SCH ×2 (10:26→20:42)
[2017-10-16] MEDS: Enoxaparin Sodium 40 MG/0.4 ML SYRINGE SC SCH (10:27)
[2017-10-16] MEDS: Emollient 15 oz bottle 450 ML, Triamcinolone Acetonide 200 MG TOP SCH ×2 (10:30→20:42)
[2017-10-16] MEDS: Acetaminophen 325 MG TAB PO PRN ×3 (10:48→23:45)
[2017-10-16] MEDS: diphenhydrAMINE 25 MG CAP PO PRN ×3 (10:48→23:46)
[2017-10-16] MEDS: BEER 1 CAN PO PRN ×3 (19:17→23:46)
[2017-10-17] MEDS: diphenhydrAMINE 25 MG CAP PO PRN ×3 (09:56→23:50)
[2017-10-17] MEDS: Aspirin 81 mg Enteric Coated Tablet PO SCH (09:56)
[2017-10-17] MEDS: Cyanocobalamin (Vitamin B-12) 1,000 MCG TAB PO SCH (09:56)
[2017-10-17] MEDS: Folic Acid/Vit B Comp W-C PO SCH (09:56)
[2017-10-17] MEDS: Famotidine 20 MG TAB PO SCH ×2 (09:56→20:56)
[2017-10-17] MEDS: Enoxaparin Sodium 40 MG/0.4 ML SYRINGE SC SCH (09:57)
[2017-10-17] MEDS: Acetaminophen 325 MG TAB PO PRN ×3 (09:57→23:49)
[2017-10-17] MEDS: Gabapentin 100 MG CAP PO SCH ×3 (09:57→20:56)
[2017-10-17] MEDS: Emollient 15 oz bottle 450 ML, Triamcinolone Acetonide 200 MG TOP SCH ×2 (10:01→20:57)
[2017-10-17] MEDS: BEER 1 CAN PO PRN ×3 (19:33→23:50)
[2017-10-18 07:21] VITALS: BP 124/72; TEMP 97.5
[2017-10-18] MEDS: Cyanocobalamin (Vitamin B-12) 1,000 MCG TAB PO SCH (09:27)
[2017-10-18] MEDS: Folic Acid/Vit B Comp W-C PO SCH (09:27)
[2017-10-18] MEDS: Aspirin 81 mg Enteric Coated Tablet PO SCH (09:27)
[2017-10-18] MEDS: Gabapentin 100 MG CAP PO SCH (09:27)
[2017-10-18] MEDS: diphenhydrAMINE 25 MG CAP PO PRN (09:27)
[2017-10-18] MEDS: Famotidine 20 MG TAB PO SCH (09:27)
[2017-10-18] MEDS: Emollient 15 oz bottle 450 ML, Triamcinolone Acetonide 200 MG TOP SCH (09:27)
[2017-10-18] MEDS: Acetaminophen 325 MG TAB PO PRN (09:27)
[2017-10-18] MEDS: Enoxaparin Sodium 40 MG/0.4 ML SYRINGE SC SCH (09:28)
--- NOTE | 2017-10-19 05:18 | DIS ---
DATE OF ADMISSION: 09/15/2017 DATE OF DISCHARGE: 10/18/2017 PRIMARY CARE PHYSICIAN: Selam Mims M.D. DISCHARGING PHYSICIAN: Selam Mims M.D. FINAL DIAGNOSES: 1. Gait instability. 2. Physical deconditioning secondary to vitamin B12 deficiency. 3. Alcohol dependence. 4. Neuropathic pain. DISCHARGE MEDICATIONS: Vitamin B12 of 1000 mcg daily, Pepcid 20 daily, thiamine 1000 daily, gabapentin 200 mg t.i.d., aspirin 81 mg daily, multivitamin 1 tab p.o. daily. DISCHARGE INSTRUCTIONS: Follow up with PCP within 2 weeks. [facility] to resume physical therapy and occupational therapy. Fall precautions. Ambulate with walker at all times. Advised to decrease alcohol intake and have a maximum of only 3 beers per day. BRIEF HOSPITAL COURSE: Mr. Llamas is a very pleasant 62-year-old male with a medical history of alcohol dependence who was admitted to [facility] in [place] 09/13/2017 to 09/15/2017 due to recurrent falls. During hospitalization, the patient was noted to be severely deconditioned. He was noted to have vitamin B12 deficiency and polyneuropathy secondary to chronic alcohol use. The patient was also noted to have multiple wounds, malnourished and dehydration. The patient was stabilized. He was started on gabapentin for the neuropathy, thiamine, folic acid, and vitamin B12. The patient was subsequently transferred to [facility] for physical therapy and wound care. During hospitalization, he was having daily wound treatment and all is significantly healed up. The patient was started on physical therapy and by day of discharge was able to ambulate about [address] with a rolling walker. The patient gained about 15 pounds during hospitalization. Throughout hospitalization, he was given 3 beers per day and was advised to continue with this and not anymore since he chooses not to quit. During hospitalization, the patient was noted to have loose tooth. He was able to follow up with his dentist who was able to extract the tooth, he completed prophylactic antibiotics per dentist recommendation and the patient was significantly happy with this. The patient tolerated PT well and his home which was very filthy was renovated by his adopted children and this was completed and the patient was subsequently discharged home with family members in a stable condition. [facility] will resume physical therapy and occupational therapy for the patient. CODE STATUS: FULL CODE. Discharge vitals, temperature 97.5, pulse 75, respirations 20, blood pressure 124/72. MTDD
== END 2017-10-18 13:37 | disposition home health service (06) | DRG 594 ==
LOC: MADMS 20:03
PROVIDERS: ADMIT Family Medicine; ATTEND Family Medicine
DX: L89.022 Pressure ulcer of left elbow, stage 2 (principal); R26.89 Other abnormalities of gait and mobility; G62.1 Alcoholic polyneuropathy; F10.20 Alcohol dependence, uncomplicated; Z72.0 Tobacco use; T14.8XXA Other injury of unspecified body region, initial encounter; S20.91XA Abrasion of unspecified parts of thorax, initial encounter; E53.8 Deficiency of other specified B group vitamins; Z91.81 History of falling; F12.10 Cannabis abuse, uncomplicated; E86.0 Dehydration; L29.9 Pruritus, unspecified
CPT/HCPCS: 97602; G8978-GP-CJ; G8978-GP-CK; G8979-GP-CI; G8987-GO-CJ; G8987-GO-CL; G8988-GO-CH; G8988-GO-CI; J1650; J3301

== ENCOUNTER 2017-12-06 14:45 | Outpatient (CLI) | payer MEDICARE ==
--- NOTE | 2017-12-06 15:28 | RAD ---
LEFT FOREARM 2 VIEWS: Date: 12/06/17 HISTORY: Fall. Pain. COMPARISON: None. FINDINGS: Forearm is intact. Mild soft tissue swelling. Moderate vascular calcifications. Evaluation of the rib s is limited. IMPRESSION: Intact forearm. POS: [facility]
== END 2017-12-06 14:46 | disposition home or self-care (01) ==
LOC: MADRAD 14:45
PROVIDERS: ATTEND Family Medicine
DX: M54.42 Lumbago with sciatica, left side (principal); M54.41 Lumbago with sciatica, right side; M79.602 Pain in left arm; R29.6 Repeated falls

== ENCOUNTER 2018-01-14 18:15 | Emergency (ER) | payer MEDICARE ==
[2018-01-14] MEDS ORDERED: HYDROcodone/Acetaminophen 10/325 mg Tablet ONE (18:51)
[2018-01-14] MEDS ORDERED: Acetaminophen 500 MG TAB ONE (19:06)
[2018-01-14] MEDS ORDERED: Ibuprofen 800 MG TAB ONE (19:06)
[2018-01-14] MEDS ORDERED: Gabapentin 100 MG CAP ONE (19:06)
== END 2018-01-14 19:20 | disposition home or self-care (01) ==
LOC: MADERS 18:15
DX: S83.411A Sprain of medial collateral ligament of right knee, initial encounter (principal); Z79.82 Long term (current) use of aspirin; Z79.899 Other long term (current) drug therapy; X50.1XXA Overexertion from prolonged static or awkward postures, initial encounter
CPT/HCPCS: 99283

== ENCOUNTER 2018-01-16 12:20 | Inpatient (IN) | payer MEDICARE ==
[2018-01-16 13:23] VITALS: BMI 21.2
[2018-01-16] MEDS ORDERED: Acetaminophen 325 MG TAB PO PRN (14:12)
[2018-01-16 14:58] LABS: ALT (SGPT) 17 U/L (8-55); AST (SGOT) 28 U/L (5-34); Albumin 3.5 g/dL (3.4-4.8); Alkaline Phosphatase 78 U/L (40-150); Anion Gap 13 mmol/L (10-20); BUN (Urea Nitrogen) Less than 4 mg/dL (8.4-25.7); Bilirubin, Total 0.4 mg/dL (0.2-1.2); Calc. Creatinine Clearance 120 mL/min (70-130); Calcium 8.8 mg/dL (7.8-10.44); Carbon Dioxide 26 mmol/L (23-31); Chloride 100 mmol/L (98-107); Estimated GFR-MDRD Greater than 90; Globulin 3.3 g/dL (2.4-3.5); Glucose 95 mg/dL (80-115); Potassium 3.8 mmol/L (3.5-5.1); Protein, Total 6.8 g/dL (5.8-8.1); Sodium 135 mmol/L (136-145)
[2018-01-16 15:11] LABS: #Basophils 0.1 thou/uL (0.0-0.2); #Eosinphils 0.2 thou/uL (0.0-0.7); #Lymphocytes 1.6 thou/uL (1.20-3.40); #Monocytes 0.8 thou/uL (0.11-0.59); #Neutrophils 5.3 thou/uL (1.40-6.50); %Basophils 1.3 % (0.0-1.0); %Eosinophils 2.6 % (0.0-10.0); %Lymphocytes 20.3 % (21.0-51.0); %Monocytes 10.1 % (0.0-10.0); %Neutrophils 65.8 % (42.0-75.0); Hemoglobin 18.8 g/dL (14.0-18.0); Mean Corpuscular HGB CONC 32.8 g/dL (32.0-36.0); Mean Corpuscular Hemoglobin 33.6 pg (27.0-31.0); Mean Corpuscular Volume 102.5 fL (78.0-98.0); Mean Platelet Volume 7.8 fL (7.4-10.4); Platelet Count 219 thou/uL (130-400); RBC Distribution Width 12.9 % (11.5-14.5); Red Blood Cell (RBC) Count 5.59 mill/uL (4.70-6.10); White Blood Cell (WBC) Count 8.1 thou/uL (4.8-10.8)
[2018-01-16 15:19] LABS: Bilirubin Negative (Negative); Blood, Urine Trace (Negative); Clarity Clear (Clear); Glucose, Urine (Dipstick) Negative (Negative); Leukocyte Negative (Negative); Nitrite Negative (Negative); Protein, Urine (Dipstick) Negative (Neg-Trace); Urobilinogen 0.2 mg/dL (0.2-1.0); pH, Urine 5.5 (5.0-9.0)
[2018-01-16 15:27] LABS: Bacteria/HPF Rare-Few HPF (None Seen); RBC/HPF 0-3 HPF (0-3); Squamous Epithelial 0-3 HPF (0-3); WBC/HPF None Seen HPF (0-3)
[2018-01-16] MEDS: BEER 1 CAN PO SCH (17:35)
[2018-01-16] MEDS: Ondansetron ODT 4 MG TAB PO PRN (19:08)
[2018-01-16] MEDS: Gabapentin 100 MG CAP PO SCH (20:02)
[2018-01-16] MEDS: Famotidine 20 MG TAB PO SCH (20:02)
--- NOTE | 2018-01-17 01:47 | HP ---
DATE OF ADMISSION: 01/16/2018 ADMITTING PHYSICIAN: Selam Mims M.D. PRIMARY CARE PHYSICIAN: Selam Mims M.D. REASON FOR ADMISSION: Fall and right knee pain, unable to stand. HISTORY OF PRESENT ILLNESS: Mr. Llamas is a 62-year-old male with history of recurrent falls, alcohol dependence, polyneuropathy, and marijuana abuse. Patient states he was been doing well and tolerating physical therapy at his home, able to walk with a rolling walker until last week on Tuesday when he started having severe right knee pain. Patient states he had therapy the day before and then on Tuesday after kneeling in his home, he was suddenly unable to stand up. He said therapist from home health who came in and helped him with bathing and getting out of the toilet, but the patient lives by himself and he could not ambulate at all, so his adopted son took him to the emergency room on . An x-ray of the lower leg of the right knee was done and showed chronic findings such as calcification and prominent chondrocalcinosis. Patient was given an Cam Band-Aid and discharged back to his home. Patient was still unable to bear weight and unable to take care of himself in his home, so on the , son took him into the emergency room at [facility] in [place]. Patient was seen and the decision initially was to admit the patient, as he was unable to go back to his home, but it was decided to see his primary care physician and possibly an Orthopedic doctor. The patient was seen in my office today, he was very tearful. He states he was deconditioned. He could not take care of himself at home and he is adopted children was going out of town until 01/19/18. He did not have anybody else to take care of him and he states that he has been falling, as he knows he is unable to stand up due to severe right knee pain. Patient denies any fevers, any nausea, vomiting, any head trauma. He said he is falling any scratches to his extremities, but no bleeding or pain anywhere other than his right knee. PAST MEDICAL HISTORY: Alcohol dependence, recurrent fall. PAST SURGICAL HISTORY: Multiple surgeries to the knees, right shoulder and left shoulder surgery. MEDICATIONS: Vitamin B12 of 1000 daily, Pepcid 20 daily, thiamine 1000 daily, gabapentin 200 t.i.d., aspirin 81 mg daily, Prozac 10 mg daily. SOCIAL HISTORY: Patient chews tobacco. He drinks about 8 to 10 beers daily. He uses marijuana mostly daily. He lives by himself in his home. REVIEW OF SYSTEMS: General: Patient denies any fever or chills. He complains of weakness. He denies any nausea, vomiting. HEENT: No visual changes, hearing changes, dysphagia. Patient denies any chest pain, shortness of breath , palpitation, or dizziness. Gastrointestinal: Denies any abdominal pain, nausea, vomiting, constipation, or diarrhea. Genitourinary: Denies dysuria or hematuria. Skin: Multiple discoloration and dry skin. Musculoskeletal: Complains of gait instability and right knee pain. Neurologic : Denies any memory loss, hallucinations, or delusions. PHYSICAL EXAMINATION: VITAL SIGNS: Temperature 97.3, pulse 88, respirations 16, O2 sat 97% on room air, blood pressure 133/88. GENERAL APPEARANCE: Alert, awake, oriented x3. Healthy looking male , poor dentition. HEENT: Normocephalic, atraumatic. PERRL. Nonicteric sclerae. Oral mucous membranes moist. NECK: Supple, no JVD. LUNGS: Clear to auscultation bilaterally. CARDIAC: S1, S2. No murmurs, rubs, or gallops. No JVD, no carotid bruit. ABDOMEN: Positive bowel sounds, nontender, nondistended, soft. EXTREMITIES: No focal deficits other than generalized weakness. MUSCULOSKELETAL: Right knee, medial tender, mildly swollen, but no visible effusions, no erythema. Positive crepitations. PSYCH: Normal mood and affect. ASSESSMENT: 1. Recurrent falls. 2. Gait instability. 3. Right knee pain. 4. Alcohol dependence. 5. Vitamin B12 deficiency. 6. Polyneuropathy. 7. Marijuana abuse. PLAN: Patient is being admitted to [place] inpatient service. We will get CBC, CMP, urinalysis. We will get a chest x-ray and possible MRI as an outpatient. We will help patient make an appointment with an Orthopedic doctor on an outpatient basis. We will consider physical therapy and occupational therapy if there is no systemic metabolic reason why he is having recurrent falls. We will restart patient's home medications. We will monitor blood pressure closely. We will give a beer with meals three times a day to prevent DTs. We will place the patient p.r.n. stool softener. We will place the patient on GI prophylaxis and Lovenox for DVT prophylaxis. EXTENDED LENGTH OF STAY: 3 to 4 days. DISPOSITION: Home. CODE STATUS: Patient is a FULL CODE. MTDD
[2018-01-17] MEDS: BEER 1 CAN PO SCH ×3 (08:55→17:47)
[2018-01-17] MEDS: Enoxaparin Sodium 40 MG/0.4 ML SYRINGE SC SCH (09:55)
[2018-01-17] MEDS: FLUoxetine HCl 10 MG CAP PO SCH (09:56)
[2018-01-17] MEDS: Famotidine 20 MG TAB PO SCH ×2 (09:56→21:13)
[2018-01-17] MEDS: Gabapentin 100 MG CAP PO SCH ×3 (09:56→21:14)
[2018-01-17] MEDS: Cyanocobalamin (Vitamin B-12) 1,000 MCG TAB PO SCH (09:56)
[2018-01-17] MEDS: Aspirin 81 mg Enteric Coated Tablet PO SCH (09:56)
[2018-01-17 12:59] LABS: #Basophils 0.1 thou/uL (0.0-0.2); #Eosinphils 0.2 thou/uL (0.0-0.7); #Lymphocytes 1.8 thou/uL (1.20-3.40); #Monocytes 0.7 thou/uL (0.11-0.59); #Neutrophils 4.2 thou/uL (1.40-6.50); %Basophils 1.6 % (0.0-1.0); %Eosinophils 2.7 % (0.0-10.0); %Lymphocytes 25.5 % (21.0-51.0); %Monocytes 9.4 % (0.0-10.0); %Neutrophils 60.8 % (42.0-75.0); Anion Gap 14 mmol/L (10-20); BUN (Urea Nitrogen) 5 mg/dL (8.4-25.7); Calc. Creatinine Clearance 106 mL/min (70-130); Calcium 8.8 mg/dL (7.8-10.44); Carbon Dioxide 26 mmol/L (23-31); Chloride 99 mmol/L (98-107); Estimated GFR-MDRD Greater than 90; Glucose 86 mg/dL (80-115); Hemoglobin 18.3 g/dL (14.0-18.0); Mean Corpuscular HGB CONC 32.6 g/dL (32.0-36.0); Mean Corpuscular Hemoglobin 33.8 pg (27.0-31.0); Mean Corpuscular Volume 103.6 fL (78.0-98.0); Mean Platelet Volume 8.7 fL (7.4-10.4); Platelet Count 205 thou/uL (130-400); Potassium 3.5 mmol/L (3.5-5.1); RBC Distribution Width 13.1 % (11.5-14.5); Red Blood Cell (RBC) Count 5.43 mill/uL (4.70-6.10); Sodium 135 mmol/L (136-145); White Blood Cell (WBC) Count 6.9 thou/uL (4.8-10.8)
[2018-01-17] MEDS: Ondansetron ODT 4 MG TAB PO PRN ×2 (14:11→22:58)
[2018-01-17] MEDS: Acetaminophen 325 MG TAB PO PRN ×2 (14:48→22:58)
[2018-01-18] MEDS: Aspirin 81 mg Enteric Coated Tablet PO SCH (07:44)
[2018-01-18] MEDS: Cyanocobalamin (Vitamin B-12) 1,000 MCG TAB PO SCH (07:45)
[2018-01-18] MEDS: Gabapentin 100 MG CAP PO SCH ×3 (07:45→20:47)
[2018-01-18] MEDS: FLUoxetine HCl 10 MG CAP PO SCH (07:45)
[2018-01-18] MEDS: Enoxaparin Sodium 40 MG/0.4 ML SYRINGE SC SCH (07:45)
[2018-01-18] MEDS: BEER 1 CAN PO SCH ×3 (07:46→18:19)
[2018-01-18] MEDS: Famotidine 20 MG TAB PO SCH ×2 (07:46→20:47)
[2018-01-19] MEDS: Gabapentin 100 MG CAP PO SCH ×2 (08:41→15:18)
[2018-01-19] MEDS: Cyanocobalamin (Vitamin B-12) 1,000 MCG TAB PO SCH (08:42)
[2018-01-19] MEDS: BEER 1 CAN PO SCH ×3 (08:42→17:19)
[2018-01-19] MEDS: Enoxaparin Sodium 40 MG/0.4 ML SYRINGE SC SCH (08:43)
[2018-01-19] MEDS: Famotidine 20 MG TAB PO SCH (08:43)
[2018-01-19] MEDS: FLUoxetine HCl 10 MG CAP PO SCH (08:43)
[2018-01-19 19:21] VITALS: BP 148/91; TEMP 97.8
--- NOTE | 2018-01-20 07:41 | DIS ---
Admitting and discharging Physician: Selam Mims M.D DATE OF ADMISSION: 01/16/2018 DATE OF DISCHARGE: 01/19/2018 DISCHARGING DIAGNOSES: 1. Right knee bursitis. 2. Gait instability. 3. Recurrent falls. 4. Alcohol dependence. 5. Polyneuropathy. DISCHARGE MEDICATIONS: Vitamin B12 of 1000 daily, Prozac 10 daily, gabapentin 200 t.i.d., aspirin 81 daily, Pepcid 20 daily, thiamine 1000 daily. DISCHARGE INSTRUCTIONS: 1. Follow up with primary care physician within 1 week. 2. Follow up with orthopedic doctor, Dr. Bearden in 3 months as needed. 3. Follow up with [facility] to resume physical therapy and occupational therapy services. 4. Ambulate with 4-wheeled walker at all times. 5. Encouraged to abstain from alcohol use. BRIEF HOSPITAL COURSE: Mr. Delio Llamas is a 62-year-old male with a history of recurrent falls, alcohol dependence, polyneuropathy who was admitted 01/16/2018 after two ER visits on the and due to him unable to stand up on his legs due to severe right knee pain and recurrent falls. The patient was seen in my office and subsequently admitted to the hospital. His caregivers were also going to be out of town until 01/19/2018 and the patient had no way to take care of himself at home or ambulate around the house. The patient was subsequently admitted. He was able to follow up with orthopedic surgeon, Dr. Bearden on 01/18/2018. Dr. Bearden was able to drain 20 mL of fluid out of the right joint and injecting with some cortisone injection. He recommended total knee replacement. The patient was not a good candidate due to his overall health. The patient states the knee feels much better today. He is able to ambulate better. He still has some pain and some discomfort though he says he feels 80% better compared to when he was admitted. The patient was subsequently discharged back home on 01/19/2018 with the care of family members. He was advised to follow up with Dr. Bearden as an outpatient and also home health to resume physical therapy and occupational therapy. CODE STATUS: FULL. MTDD
== END 2018-01-19 19:25 | disposition home health service (06) | DRG 558 ==
LOC: MADMS 12:20
PROVIDERS: ADMIT Family Medicine; ATTEND Family Medicine
PROC: 0S9C3ZZ Drainage of Right Knee Joint, Percutaneous Approach (ICD-10-PCS; principal; 2018-01-18)
PROC: 3E0U33Z Introduction of Anti-inflammatory into Joints, Percutaneous Approach (ICD-10-PCS; 2018-01-18)
DX: M70.51 Other bursitis of knee, right knee (principal); Z91.81 History of falling; F10.20 Alcohol dependence, uncomplicated; G62.9 Polyneuropathy, unspecified; F12.10 Cannabis abuse, uncomplicated; R26.81 Unsteadiness on feet; E53.8 Deficiency of other specified B group vitamins
CPT/HCPCS: 36415; 80048; 80053; 81001; 85025; J1650; Q0162

== ENCOUNTER 2018-04-09 23:53 | Emergency (ER) | payer MEDICARE ==
[~2018-04-09 23:53] MED LIST: Sterile Water Irrigation 250 ML BOT ONE
[2018-04-10 00:47] LABS: Eosinophils 1 % (0-10); Hemoglobin 19.6 g/dL (14.0-18.0); Lymphocytes 19 % (21-51); MDiff Complete? YES; Macrocytosis SLIGHT = 6-15 cells (100X) (0-5/hpf); Mean Corpuscular HGB CONC 31.8 g/dL (32.0-36.0); Mean Corpuscular Volume 106.8 fL (78.0-98.0); Mean Platelet Volume 8.8 fL (7.4-10.4); Monocytes 10 % (0-10); Neutrophil 61 % (42-75); Platelet Count 220 thou/uL (130-400); Platelet Morphology Comment Appears Adequate; RBC Distribution Width 13.8 % (11.5-14.5); RBC Morphology Abnormal; Reactive Lymphocytes 9 % (0-10); Red Blood Cell (RBC) Count 5.75 mill/uL (4.70-6.10)
[2018-04-10 00:50] LABS: ALT (SGPT) 35 U/L (8-55); AST (SGOT) 58 U/L (5-34); Albumin 4.6 g/dL (3.4-4.8); Alcohol 247 mg/dL (Less than 10); Alkaline Phosphatase 96 U/L (40-150); Anion Gap 18 mmol/L (10-20); BUN (Urea Nitrogen) 5 mg/dL (8.4-25.7); Bilirubin, Total 1.2 mg/dL (0.2-1.2); CK (CPK) 140 U/L (30-200); Calc. Creatinine Clearance 0 mL/min (70-130); Calcium 9.9 mg/dL (7.8-10.44); Carbon Dioxide 26 mmol/L (23-31); Chloride 91 mmol/L (98-107); Estimated GFR-MDRD Greater than 90; Globulin 4.1 g/dL (2.4-3.5); Glucose 105 mg/dL (80-115); Lipase 67 U/L (8-78); Potassium 3.7 mmol/L (3.5-5.1); Protein, Total 8.7 g/dL (5.8-8.1); Sodium 131 mmol/L (136-145)
[2018-04-10 00:54] LABS: Bilirubin Negative (Negative); Blood, Urine Trace (Negative); Clarity Clear (Clear); Glucose, Urine (Dipstick) Negative (Negative); Leukocyte Negative (Negative); Nitrite Negative (Negative); Protein, Urine (Dipstick) Negative (Neg-Trace); Urobilinogen 0.2 mg/dL (0.2-1.0)
[2018-04-10 00:57] LABS: Specific Gravity, Urine 1.001 (1.002-1.036)
[2018-04-10 01:02] LABS: Bacteria/HPF None Seen HPF (None Seen); RBC/HPF 0-3 HPF (0-3); Squamous Epithelial None Seen HPF (0-3); WBC/HPF None Seen HPF (0-3)
[2018-04-10 01:04] LABS: Amphetamine Not Detected (NotDetected); Barbiturates Screen Not Detected (NotDetected); Benzodiazepine Screen Not Detected (NotDetected); Cocaine Metabolite Screen Not Detected (NotDetected); Medtox Control Line Valid? VALID (VALID); Methadone Not Detected (NotDetected); Methamphetamine Not Detected (NotDetected); Opiate Screen Not Detected (NotDetected); Oxycodone Screen Not Detected (NotDetected); Phencyclidine (PCP) Not Detected (NotDetected); THC/Cannabinoid Screen Detected (NotDetected); Tricyclic Screen Not Detected (NotDetected)
--- NOTE | 2018-04-10 08:03 | RAD ---
FOUR VIEWS LEFT ELBOW: HISTORY: Left elbow pain after injury. FINDINGS: AP, lateral, and oblique views left elbow are obtained. Four vies left elbow demonstrate no evidence of left elbow fractures, subluxations, or bony lesions. IMPRESSION: Normal 4 views left elbow. POS: [facility]
--- NOTE | 2018-04-10 08:06 | RAD ---
THREE VIEWS RIGHT FOOT: HISTORY: Right foot pain. FINDINGS: AP, lateral, and oblique views right foot are obtained. Three views right foot demonstrate gas-filled calcifications seen. No evidence of right foot fractures, subluxations, or bony lesions seen. IMPRESSION: Normal 3 views right foot. POS: [facility]
--- NOTE | 2018-04-10 08:18 | RAD ---
FOUR VIEWS RIGHT KNEE: HISTORY: Right knee pain after injury. FINDINGS: AP, lateral, and oblique views right knee obtained. Four views right knee demonstrate no evidence of right knee fractures, subluxations, or bony lesions. IMPRESSION: Unremarkable 4 views right knee. POS: [facility]
--- NOTE | 2018-04-10 08:20 | RAD ---
FOUR VIEWS LEFT KNEE: History: Left knee pain after injury. Date: 04-10-18 Comparison: 09-12-17 FINDINGS: AP, lateral, and both oblique views of the left knee obtained and demonstrate no evidence of left kne e fractures, subluxations, or bony lesions. The patient has had a previous left knee arthroplasty. No acute bony abnormality is seen. IMPRESSION: Unremarkable post arthroplasty radiographs of the left knee. POS: [facility]
== END 2018-04-10 02:05 | disposition home or self-care (01) ==
LOC: MADERS 23:53
DX: S50.311A Abrasion of right elbow, initial encounter (principal); S80.212A Abrasion, left knee, initial encounter; S80.211A Abrasion, right knee, initial encounter; S90.811A Abrasion, right foot, initial encounter; F10.20 Alcohol dependence, uncomplicated; F17.220 Nicotine dependence, chewing tobacco, uncomplicated; F32.9 Major depressive disorder, single episode, unspecified; Z79.82 Long term (current) use of aspirin; W17.89XA Other fall from one level to another, initial encounter
CPT/HCPCS: 80053; 80306; 80307; 81003; 81015; 82150; 82550; 83690; 85025; 93005

== ENCOUNTER 2018-05-03 14:42 | Outpatient (CLI) | payer MEDICARE ==
[2018-05-03 15:24] LABS: PTT 27.8 SEC (22.9-36.1); Prothrombin Time 13.5 SEC (12.0-14.7)
[2018-05-03 15:34] LABS: ALT (SGPT) 19 U/L (8-55); AST (SGOT) 29 U/L (5-34); Albumin 3.7 g/dL (3.4-4.8); Alkaline Phosphatase 104 U/L (40-150); Anion Gap 17 mmol/L (10-20); BUN (Urea Nitrogen) Less than 4 mg/dL (8.4-25.7); Bilirubin, Total 0.5 mg/dL (0.2-1.2); Calc. Creatinine Clearance 0 mL/min (70-130); Calcium 9.4 mg/dL (7.8-10.44); Carbon Dioxide 29 mmol/L (23-31); Chloride 98 mmol/L (98-107); Estimated GFR-MDRD Greater than 90; Globulin 3.9 g/dL (2.4-3.5); Glucose 94 mg/dL (80-115); Potassium 4.9 mmol/L (3.5-5.1); Protein, Total 7.6 g/dL (5.8-8.1); Sodium 139 mmol/L (136-145)
--- NOTE | 2018-05-03 15:37 | RAD ---
TWO VIEWS CHEST: DATE: 05/03/2018. PROVIDED CLINICAL HISTORY: Preop. FINDINGS: Comparison 09/13/2017. Cardiac and mediastinal silhouette is unchanged in appearance. Loculated pleural gas and associated left basilar pleural fluid is redemonstrated. Parenchymal changes involving the left lung appear sim ilar to the prior and are likely on the basis of scarring. The right hemithorax is poorly evaluated on the basis of overlying patient soft tissues related to positioning. No definite right-sided pleur al fluid or pneumothorax is evident. IMPRESSION: Loculated pleural gas and pleural effusion with chronic parenchymal lung change on the left, appearin g similar to the prior examination. POS: [facility]
[2018-05-03 16:24] LABS: #Basophils 0.1 thou/uL (0.0-0.2); #Eosinphils 0.1 thou/uL (0.0-0.7); #Lymphocytes 2.1 thou/uL (1.20-3.40); #Monocytes 0.6 thou/uL (0.11-0.59); #Neutrophils 8.8 thou/uL (1.40-6.50); %Basophils 0.9 % (0.0-1.0); %Eosinophils 1.1 % (0.0-10.0); %Lymphocytes 17.8 % (21.0-51.0); %Monocytes 5.4 % (0.0-10.0); %Neutrophils 74.8 % (42.0-75.0); Hemoglobin 18.9 g/dL (14.0-18.0); Large Platelets SLIGHT; MDiff Complete? YES; Macrocytosis MODERATE=16-30 cells (100X) (0-5/hpf); Mean Corpuscular HGB CONC 32.4 g/dL (32.0-36.0); Mean Corpuscular Hemoglobin 34.3 pg (27.0-31.0); Mean Platelet Volume 8.3 fL (7.4-10.4); Platelet Count 268 thou/uL (130-400); Platelet Morphology Comment Appears Adequate; RBC Distribution Width 13.2 % (11.5-14.5); White Blood Cell (WBC) Count 11.7 thou/uL (4.8-10.8)
== END 2018-05-03 14:43 | disposition home or self-care (01) ==
LOC: MADLABBHPM 14:42
PROVIDERS: ATTEND Family Medicine
DX: Z01.818 Encounter for other preprocedural examination (principal); J90 Pleural effusion, not elsewhere classified
CPT/HCPCS: 36415; 71046; 80053; 85025; 85610; 85730